=== PATIENT | female | born 1940 | race Caucasian/White ===

== ENCOUNTER 2016-12-13 07:34 | Day surgery (SDC) | payer MEDICARE ==
[~2016-12-13 07:34] MED LIST: FENTANYL 250 MCG/5 ML AMP IV PRN; IV START KIT ONE; LACTATED RINGERS 1,000 ML IV SCH; LACTATED RINGERS 1,000 ML ONE; MIDAZOLAM HCL 5 MG/5 ML VIAL IV PRN
[2016-12-13] MEDS ORDERED: FENTANYL 5 ML ONE (08:13)
[2016-12-13] MEDS ORDERED: MIDAZOLAM HCL 5 MG/5 ML VIAL ONE (08:13)
--- NOTE | 2016-12-17 11:01 | SURGPATH ---
[facility] [address] [place] [id number] Patient Name: ANTONIO SIMON MR#: [id number] : 1940 Gender: F Specimen #: [id number] Collected: 12/13/2016 Received: 12/15/2016 Reported: 12/17/2016 Submitting Phys: SARAH MAY Copy To Phys: PRAKASH SINCLAIR [facility] Clinical History / Pre-Operative Diagnosis: Hemoccult + stool Specimen Source / Surgical Procedure Performed: Proximal ascending colon polyp Interpretation: PROXIMAL ASCENDING COLON POLYP, BIOPSY: - TUBULAR ADENOMA Electronically Signed Out Kwame Greene M.D. Gross Description: The specimen is received in a formalin filled container labeled with the patient's name and "proximal ascending colon polyp". A single lawler biopsy is 0.4 cm. Totally embedded in one cassette. Uli Stern PCata Microscopic Description: Microscopic performed. 1: 66908 D12.2
== END 2016-12-13 09:00 | disposition home or self-care (01) ==
LOC: SDC 07:34
PROVIDERS: ATTEND Internal Medicine Gastroenterology
PROC: 0DBK8ZX Excision of Ascending Colon, Via Natural or Artificial Opening Endoscopic, Diagnostic (ICD-10-PCS; principal; 2016-12-13)
DX: D12.2 Benign neoplasm of ascending colon (principal); Q27.33 Arteriovenous malformation of digestive system vessel; Z87.891 Personal history of nicotine dependence; E55.9 Vitamin D deficiency, unspecified; Z79.82 Long term (current) use of aspirin
CPT/HCPCS: 45380; J3010; J2250; J7120